=== PATIENT | female | born 1970 | race Caucasian/White ===

== ENCOUNTER 2024-12-24 06:48 | Day surgery (SDC) | payer OTHER ==
[~2024-12-24] VITALS: Ht 147.3 cm; Wt 64.5 kg
[~2024-12-24 06:48] MED LIST: ALBU18HF12 IH; ATOR10TA69 PO; AZEL137S8 NASAL; BECL10.62 IH; DICL100G60 TP; DULO60CA98 PO; FAMO20 PO; GABA-1404 PO; HYDR12.54 PO; IBUP-2077 PO; LIDO-16 TP; MONT-40 PO; SODIUM CHLORIDE 0.9% 1,000 ML ONE
[2024-12-24] MEDS ORDERED: LIDOCAINE 2% 11 ML JELLY TP ONE (06:49)
[2024-12-24] MEDS ORDERED: ALBUTEROL SULFATE 2.5 MG/0.5 ML NEB SOLUTION NEB ONE (06:49)
[2024-12-24] MEDS ORDERED: BENZOCAINE 20% 50 MCG/SPRAY 57 GM TP ONE (06:49)
[2024-12-24] MEDS ORDERED: LIDOCAINE 4% 50 ML SOLUTION TP ONE (06:49)
[2024-12-24] MEDS ORDERED: FentaNYL CITRATE PF 100 MCG/2 ML VIAL ONE (07:56)
[2024-12-24] MEDS ORDERED: MIDAZOLAM HCL 2 MG/2 ML VIAL ONE (07:57)
[2024-12-24] MEDS: SODIUM CHLORIDE 0.9% 1,000 ML IV ONE (08:20)
[2024-12-24 09:55] VITALS: PULSE 70; RESP 20; O2SAT 97
[2024-12-24] MEDS ORDERED: MethylPREDNISolone SOD SUCC 125 MG/2 ML VIAL ONE (10:23)
[2024-12-24] MEDS: MethylPREDNISolone SOD SUCC 125 MG/2 ML VIAL IVP ONE (10:27)
== END 2024-12-24 11:40 | disposition home or self-care (01) ==
LOC: SURGERY 06:48
PROVIDERS: ATTEND Internal Medicine Critical Care Medicine
DX: R05.3 Chronic cough (principal); R04.2 Hemoptysis; L40.59 Other psoriatic arthropathy; J38.4 Edema of larynx; B37.0 Candidal stomatitis; I10 Essential (primary) hypertension; Z98.890 Other specified postprocedural states; Z87.442 Personal history of urinary calculi
CPT/HCPCS: 31623; 87206; 87101; 87220; 87070; 88108; 31624; 71045; 87015; J3010; J2250; J2919; J7030; J7613; Z7610